=== PATIENT | male | born 1980 | race Caucasian/White ===

== ENCOUNTER 2017-08-25 19:07 | Emergency (ER) | payer SELFPAY ==
[~2017-08-25 19:07] MED LIST: CLIN300C5 PO; PROT40TA PO; VALA500T PO
[2017-08-25] MEDS ORDERED: IOHEXOL 350 MG/ML 10 ML VIAL (for RAD DIAG) IVCONTRAST ONE (19:08)
[2017-08-25 19:09] VITALS: BP 178/92; PULSE 87; RESP 16; TEMP 97.8; O2SAT 99
[2017-08-25 20:44] LABS: AUTOMATED NEUTROPHIL # 8.3 TH/MM3 (1.8-7.7); BASOPHIL # 0.2 TH/MM3 (0-0.2); BASOPHIL % 1.1 % (0.0-2.0); EOSINOPHIL # 0.5 TH/MM3 (0-0.4); EOSINOPHIL % 3.9 % (0.0-4.0); HEMATOCRIT 35.4 % (39.0-51.0); HEMO FLAGS DIFF FINAL; LYMPH % 24.1 % (9.0-44.0); LYMPHOCYTE # 3.2 TH/MM3 (1.0-4.8); MEAN CELL VOLUME 86.3 FL (80.0-100.0); MEAN CORPUSCULAR HEMOGLOBIN 28.6 PG (27.0-34.0); MEAN CORPUSCULAR HGB CONC 33.2 % (32.0-36.0); MONO % 7.4 % (0.0-8.0); NEUT % 63.5 % (16.0-70.0); PLATELET COUNT 472 TH/MM3 (150-450); RED CELL DISTRIBUTION WIDTH 15.5 % (11.6-17.2); WHITE BLOOD COUNT 13.1 TH/MM3 (4.0-11.0)
[2017-08-25] MEDS ORDERED: LIDOCAINE HCL 1% 50 ML VIAL INFIL ONE (20:45)
--- NOTE | 2017-08-25 20:45 | PD ---
HPI Chief Complaint: Skin Problem Time Seen by Provider: 20:34 Travel History International Travel<30 days: No Contact w/Intl Traveler<30days: No Traveled to known affect area: No History of Present Illness HPI This is a 37-year-old male presents for evaluation of abdominal wall pain, redness, soft tissue swelling. Symptoms started 3 weeks ago as 2 small pimple looking lesions. Since then the lesions have grown larger and this is what prompted evaluation today. He reports that his primary care physician called him a prescription for clindamycin over the phone yesterday which she started using yesterday. Denies fevers, chills, nausea, vomiting. Denies any intravenous drug use but he does admit to injecting intramuscular testosterone into his buttocks on a regular basis. He has no other complaints at this time. PFS Past Medical History Blood Disorders: No Cardiovascular Problems: No Diabetes: No Endocrine: No Genitourinary: No Hepatitis: No Hiatal Hernia: No Immune Disorder: No Musculoskeletal: Yes (CHRONIC LOW BACK PAIN) Neurologic: No Reproductive: No Respiratory: No Thyroid Disease: No Past Surgical History Abdominal Surgery: No Cardiac Surgery: No Ear Surgery: No Endocrine Surgery: No Eye Surgery: No Genitourinary Surgery: No Gynecologic Surgery: No Oral Surgery: No Pacemaker: No Thoracic Surgery: No Other Surgery: Yes (LEFT INDEX FINGER SURGERY) Social History Alcohol Use: No Tobacco Use: Yes (1 PPD) 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 Examination of the abdominal wall reveals 2 very large indurated fluctuant lesions. HEAD: Atraumatic. Normocephalic. EYES: Pupils equal and round. No scleral icterus. No injection or drainage. ENT: No nasal bleeding or discharge. Mucous membranes pink and moist. NECK: Trachea midline. No JVD. CARDIOVASCULAR: Regular rate and rhythm. No murmur appreciated. RESPIRATORY: No accessory muscle use. Clear to auscultation. Breath sounds equal bilaterally. GASTROINTESTINAL: Skin as noted above. Abdomen soft, non-tender, nondistended. Hepatic and splenic margins not palpable. MUSCULOSKELETAL: No obvious deformities. No clubbing. No cyanosis. No edema. NEUROLOGICAL: Awake and alert. No obvious cranial nerve deficits. Motor grossly within normal limits. Normal speech. PSYCHIATRIC: Appropriate mood and affect; insight and judgment normal. Data Data Last Documented VS Vital Signs Date Time Temp Pulse Resp B/P (MAP) Pulse Ox O2 Delivery O2 Flow Rate FiO2 08/25/17 19:09 97.8 87 16 178/92 (120) 99 Room Air Orders Orders Complete Blood Count With Diff (08/25/17 19:32) Basic Metabolic Panel (Bmp) (08/25/17 19:32) Lidocaine 1% Inj (50 Ml) (Xylocaine 1% I (08/25/17 20:45) Ct Abd/Pel W Iv Contrast(Rout) (08/25/17 20:37) Wound Culture And Gram Stain (08/25/17 20:38) Iohexol 350 Inj (Omnipaque 350 Inj) (08/25/17 19:08) Labs Laboratory Tests Test 08/25/17 20:10 White Blood Count 13.1 TH/MM3 Red Blood Count 4.10 MIL/MM3 Hemoglobin 11.7 GM/DL Hematocrit 35.4 % Mean Corpuscular Volume 86.3 FL Mean Corpuscular Hemoglobin 28.6 PG Mean Corpuscular Hemoglobin Concent 33.2 % Red Cell Distribution Width 15.5 % Platelet Count 472 TH/MM3 Mean Platelet Volume 7.4 FL Neutrophils (%) (Auto) 63.5 % Lymphocytes (%) (Auto) 24.1 % Monocytes (%) (Auto) 7.4 % Eosinophils (%) (Auto) 3.9 % Basophils (%) (Auto) 1.1 % Neutrophils # (Auto) 8.3 TH/MM3 Lymphocytes # (Auto) 3.2 TH/MM3 Monocytes # (Auto) 1.0 TH/MM3 Eosinophils # (Auto) 0.5 TH/MM3 Basophils # (Auto) 0.2 TH/MM3 CBC Comment DIFF FINAL Differential Comment Blood Urea Nitrogen 22 MG/DL Creatinine 1.33 MG/DL Random Glucose 85 MG/DL Calcium Level 8.8 MG/DL Sodium Level 137 MEQ/L Potassium Level 4.6 MEQ/L Chloride Level 104 MEQ/L Carbon Dioxide Level 27.3 MEQ/L Anion Gap 6 MEQ/L Estimat Glomerular Filtration Rate 61 ML/MIN MDM Medical Decision Making Medical Screen Exam Complete: Yes Emergency Medical Condition: Yes Medical Record Reviewed: Yes Interpretation(s) Lab work notable for a WBC count of 13.1. Differential Diagnosis Abscess, sarcoma, infected cyst, lipoma, cellulitis Narrative Course Lab work was ordered by the triage provider and has been reviewed. He has an elevated the WBC count of 13.1. Initially the patient was denying substance injections into his abdomen however after my examination he admitted to the nurse that he has been injecting hGH into his abdomen subcutaneously and this is certainly the etiology of his abscesses. CT abdomen and pelvis reveals CONCLUSION: 1. Focal area of skin thickening and abnormal masslike soft tissue in the subcutaneous fat over the right anterior abdominal wall musculature. The differential diagnosis includes infection, hematoma and possible abscess. Tumor is less likely. 2. Cholelithiasis. Examination and history are consistent with abscess. After verbal consent was obtained, the abscesses were drained and packed. The patient will continue the clindamycin that was prescribed yesterday pending culture results. He is stable for discharge. Procedures Procedure Narrative INCISION AND DRAINAGE OF ABSCESS: The area was prepped and was sterilely draped. A subcutaneous wheal of 1% Xylocaine with epinephrine with a total number 10 mL was used to anesthetize the area. The area was properly anesthetized. A number 11 scalpel was used to make a 2-cm incision across the area of the abscess. Cultures were obtained. The abscess was drained an irrigated with normal saline. Quarter inch iodoform packing was placed in the wound. Sterile dressing applied. Patient advised to have packing removed in two days. INCISION AND DRAINAGE OF ABSCESS: The area was prepped and was sterilely draped. A subcutaneous wheal of 1% Xylocaine with epinephrine with a total number 10 mL was used to anesthetize the area. The area was properly anesthetized. A number 11 scalpel was used to make a 2-cm incision across the area of the abscess. Cultures were obtained. The abscess was drained an irrigated with normal saline. Quarter inch iodoform packing was placed in the wound. Sterile dressing applied. Patient advised to have packing removed in two days. Diagnosis Primary Impression: Abscess of abdominal wall Additional Instructions: Continue taking antibiotics as prescribed. Follow-up with primary care physician or here in 2-3 days for packing removal. Return for any emergent medical conditions. Med/Other Pt SpecificInfo: Wound Care Disposition: 01 DISCHARGE HOME Condition: Stable Joaquin Villatoro Aug 25, 2017 20:45
[2017-08-25 20:47] LABS: BICARBONATE 27.3 MEQ/L (21.0-32.0); POTASSIUM 4.6 MEQ/L (3.5-5.1)
--- NOTE | 2017-08-25 23:57 | RADRPT ---
EXAM DATE/TIME: 08/25/2017 23:20 [facility] COMPARISON: No previous studies available for comparison. INDICATIONS : Patient complains of painful abdomen skin lesion . IV CONTRAST: 70 cc Omnipaque 350 (iohexol) IV ORAL CONTRAST: No oral contrast ingested. RADIATION DOSE: 11.86 CTDIvol (mGy) MEDICAL HISTORY : None SURGICAL HISTORY : None. ENCOUNTER: Initial ACUITY: 2 days PAIN SCALE: 1/10 LOCATION: abdomen TECHNIQUE: Volumetric scanning of the abdomen and pelvis was performed. Using automated exposure control and ad justment of the mA and/or kV according to patient size, radiation dose was kept as low as reasonably achievable to obtain optimal diagnostic quality images. DICOM format image data is available electro nically for review and comparison. FINDINGS: LOWER LUNGS: The visualized lower lungs are clear. LIVER: Homogeneous density without lesion. There is no dilation of the biliary tree. Multiple gallstones ar e present. SPLEEN: Normal size without lesion. PANCREAS: Within normal limits. KIDNEYS: Normal in size and shape. There is no mass, stone or hydronephrosis. ADRENAL GLANDS: Within normal limits. VASCULAR: There is no aortic aneurysm. BOWEL/MESENTERY: The stomach, small bowel, and colon demonstrate no acute abnormality. There is no free intraperitone al air or fluid. ABDOMINAL WALL: There is no evidence of a hernia. There is a focal mildly heterogeneous skin thickening and soft tiss ue density along the right anterior abdomen centered in the subcutaneous fat. This measures up to yasmani roximately 5 x 1.4 cm in greatest diameter and contains a subtle lower attenuation central portion me asuring up to 1.3 x 1 cm. RETROPERITONEUM: There is no lymphadenopathy. BLADDER: No wall thickening or mass. REPRODUCTIVE: Within normal limits. INGUINAL: There is no lymphadenopathy or hernia. MUSCULOSKELETAL: Within normal limits for patient age. CONCLUSION: 1. Focal area of skin thickening and abnormal masslike soft tissue in the subcutaneous fat over the r ight anterior abdominal wall musculature. The differential diagnosis includes infection, hematoma and possible abscess. Tumor is less likely. 2. Cholelithiasis. Sebastien Quintero MD on August 25, 2017 at 23:52 Board Certified Radiologist. This report was verified electronically.
[2017-08-26] MEDS ORDERED: CLIN300C5 PO (16:58)
== END 2017-08-26 00:33 | disposition home or self-care (01) ==
LOC: NEPD 19:07
DX: L02.211 Cutaneous abscess of abdominal wall (principal); F17.200 Nicotine dependence, unspecified, uncomplicated
CPT/HCPCS: 10061; 74177; 80048; 85025; 87070; 99285; Q9967

== ENCOUNTER 2018-02-17 09:43 | Inpatient (IN) | payer OTHER ==
[~2018-02-17] VITALS: Ht 180.3 cm; Wt 103.7 kg
[2018-02-17 10:04] VITALS: BP 151/66; PULSE 88; RESP 14; TEMP 98.3; O2SAT 98
[2018-02-17] MEDS ORDERED: PIPERACIL-TAZO 4.5 GM PREMIX 100 ML IV STA (10:55)
[2018-02-17 11:11] LABS: AUTOMATED NEUTROPHIL # 8.9 TH/MM3 (1.8-7.7); BASOPHIL # 0.1 TH/MM3 (0-0.2); BASOPHIL % 0.7 % (0.0-2.0); EOSINOPHIL # 0.4 TH/MM3 (0-0.4); EOSINOPHIL % 3.5 % (0.0-4.0); HEMATOCRIT 40.6 % (39.0-51.0); HEMOGLOBIN 13.4 GM/DL (13.0-17.0); LYMPHOCYTE # 2.1 TH/MM3 (1.0-4.8); MEAN CELL VOLUME 89.7 FL (80.0-100.0); MEAN CORPUSCULAR HEMOGLOBIN 29.7 PG (27.0-34.0); MEAN CORPUSCULAR HGB CONC 33.1 % (32.0-36.0); MEAN PLATELET VOLUME 7.3 FL (7.0-11.0); MONO % 7.4 % (0.0-8.0); MONOCYTE # 0.9 TH/MM3 (0-0.9); NEUT % 71.4 % (16.0-70.0); PLATELET COUNT 507 TH/MM3 (150-450); RED BLOOD COUNT 4.53 MIL/MM3 (4.50-5.90); RED CELL DISTRIBUTION WIDTH 15.9 % (11.6-17.2); WHITE BLOOD COUNT 12.5 TH/MM3 (4.0-11.0)
[2018-02-17] MEDS: VANCOMYCIN INJ 1,500 MG in SODIUM CHLORID 0.9% 500 ML INJ 500 ML IV STA ×2 (11:15→11:50)
[2018-02-17 11:30] LABS: BICARBONATE 26.3 MEQ/L (21.0-32.0); CALCIUM 9.4 MG/DL (8.5-10.1); CREATININE 1.06 MG/DL (0.60-1.30)
[2018-02-17] MEDS ORDERED: LIDOCAINE HCL 1% PF 30 ML VIAL INFIL ONE (11:30)
[2018-02-17 11:51] VITALS: BP 133/76; PULSE 81; RESP 16; TEMP 98.1; O2SAT 99
--- NOTE | 2018-02-17 11:56 | PD ---
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 Patient states that it started several days ago. He reports it started as a pimple. He states it soon became larger and more painful. He reports calling his primary care physician who called him in a prescription for clindamycin. He reports that initially it appeared to be getting better however now there is a large amount of drainage and redness and induration. His primary referred him to the [facility] urgent care center who evaluated him and sent him here for further workup. The patient denies any fevers. He denies any chills. PFSH Past Medical History Blood Disorders: No Cardiovascular Problems: No Diabetes: No Diminished Hearing: No Endocrine: No Genitourinary: No Hepatitis: No Hiatal Hernia: No Immune Disorder: No Musculoskeletal: Yes (CHRONIC LOW BACK PAIN) Neurologic: No Reproductive: No Respiratory: No Integumentary: Yes (mrsa) Thyroid Disease: No Tetanus Vaccination: > 5 Years Influenza Vaccination: No Past Surgical History Abdominal Surgery: No Cardiac Surgery: No Ear Surgery: No Endocrine Surgery: No Eye Surgery: No Genitourinary Surgery: No Gynecologic Surgery: No Oral Surgery: No Pacemaker: No Thoracic Surgery: No Other Surgery: Yes (LEFT INDEX FINGER SURGERY) Social History Alcohol Use: No Tobacco Use: No (quit 5 years ago ) 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) Allergies-Medications (Allergen,Severity, Reaction): Coded Allergies: aspirin (Verified Allergy, Severe, hives, 02/17/18) Reported Meds & Prescriptions Reported Meds & Active Scripts Active Protonix (Pantoprazole Sodium) 40 Mg Tab 40 Mg PO DAILY One bid for reflux Review of Systems Except as stated in HPI: all other systems reviewed are Neg General / Constitutional: No: Fever HENT: No: Headaches, Neck Pain Cardiovascular: No: Chest Pain or Discomfort, Palpitations Respiratory: No: Cough, Shortness of Breath Gastrointestinal: No: Nausea, Vomiting Musculoskeletal: Positive: Edema, Pain Skin: Positive Lesions (Left forearm draining lesion with purulent ), Positive Other (Induration.) Neurologic: No: Weakness, Headache Physical Exam Narrative GENERAL: Well-nourished, well-developed patient. SKIN: Focused skin assessment warm/dry. HEAD: Normocephalic. EYES: No scleral icterus. No injection or drainage. NECK: Supple, trachea midline. No JVD or lymphadenopathy. CARDIOVASCULAR: Regular rate and rhythm without murmurs, gallops, or rubs. RESPIRATORY: Breath sounds equal bilaterally. No accessory muscle use. GASTROINTESTINAL: Abdomen soft, non-tender, nondistended. MUSCULOSKELETAL: On examination of patient's left forearm, there is a 4 x 3 cm abscess with purulent sanguinous drainage. There is also 10 x 11 cm of induration noted surrounding the abscess. There is no obvious lymphangitis at this point. BACK: Nontender without obvious deformity. No CVA tenderness. Data Data Last Documented VS Vital Signs Date Time Temp Pulse Resp B/P (MAP) Pulse Ox O2 Delivery O2 Flow Rate FiO2 02/17/18 11:51 98.1 81 16 133/76 (95) 99 Orders Orders Basic Metabolic Panel (Bmp) (02/17/18 10:52) Complete Blood Count With Diff (02/17/18 10:52) Blood Culture (02/17/18 10:52) Iv Access Insert/Monitor (02/17/18 10:52) Lactic Acid Sepsis Protocol (02/17/18 10:55) Piperacil-Tazo 4.5 Gm Premix (Zosyn 4.5 (02/17/18 10:55) Vancomycin Inj (Vancomycin Inj) (02/17/18 10:55) Wound Culture And Gram Stain (02/17/18 11:12) Lidocaine Pf 1% Inj (Xylocaine-Mpf 1% In (02/17/18 11:30) Admit Order (Ed Use Only) (02/17/18 13:42) Labs Laboratory Tests Test 02/17/18 10:50 02/17/18 11:10 White Blood Count 12.5 TH/MM3 Red Blood Count 4.53 MIL/MM3 Hemoglobin 13.4 GM/DL Hematocrit 40.6 % Mean Corpuscular Volume 89.7 FL Mean Corpuscular Hemoglobin 29.7 PG Mean Corpuscular Hemoglobin Concent 33.1 % Red Cell Distribution Width 15.9 % Platelet Count 507 TH/MM3 Mean Platelet Volume 7.3 FL Neutrophils (%) (Auto) 71.4 % Lymphocytes (%) (Auto) 17.0 % Monocytes (%) (Auto) 7.4 % Eosinophils (%) (Auto) 3.5 % Basophils (%) (Auto) 0.7 % Neutrophils # (Auto) 8.9 TH/MM3 Lymphocytes # (Auto) 2.1 TH/MM3 Monocytes # (Auto) 0.9 TH/MM3 Eosinophils # (Auto) 0.4 TH/MM3 Basophils # (Auto) 0.1 TH/MM3 CBC Comment DIFF FINAL Differential Comment Blood Urea Nitrogen 17 MG/DL Creatinine 1.06 MG/DL Random Glucose 103 MG/DL Calcium Level 9.4 MG/DL Sodium Level 138 MEQ/L Potassium Level 4.6 MEQ/L Chloride Level 104 MEQ/L Carbon Dioxide Level 26.3 MEQ/L Anion Gap 8 MEQ/L Estimat Glomerular Filtration Rate 80 ML/MIN Lactic Acid Level 1.2 mmol/L MDM Medical Decision Making Medical Screen Exam Complete: Yes Emergency Medical Condition: Yes Differential Diagnosis Cellulitis versus abscess versus lymphangitis Narrative Course 37-year-old male who has a history of MRSA infection, presented today with left forearm abscess with drainage. Patient was previously started on oral clindamycin. It initially got better however now is gotten worse. Patient has a large area of induration as well. The abscess has been I&D by Niles Beck PA-C. He has been started on vancomycin and Zosyn. Blood cultures are pending at this time. Case was discussed with the resident service and they are amenable to admission. Diagnosis Primary Impression: Cellulitis of left forearm Additional Impressions: Failed outpatient oral antibiotics History of MRSA infection Vinod Nayak MD February 17, 2018 11:56
--- NOTE | 2018-02-17 12:28 | PD ---
Physical Exam Date Seen by Provider: February 17, 2018 Time Seen by Provider: 12:26 Narrative 37 yo male here for evaluation of abscess. I was asked by my attending to I & D his abscess. Please refer to his note. Data Data Last Documented VS Vital Signs Date Time Temp Pulse Resp B/P (MAP) Pulse Ox O2 Delivery O2 Flow Rate FiO2 02/17/18 11:51 98.1 81 16 133/76 (95) 99 Orders Orders Basic Metabolic Panel (Bmp) (02/17/18 10:52) Complete Blood Count With Diff (02/17/18 10:52) Blood Culture (02/17/18 10:52) Iv Access Insert/Monitor (02/17/18 10:52) Lactic Acid Sepsis Protocol (02/17/18 10:55) Piperacil-Tazo 4.5 Gm Premix (Zosyn 4.5 (02/17/18 10:55) Vancomycin Inj (Vancomycin Inj) (02/17/18 10:55) Wound Culture And Gram Stain (02/17/18 11:12) Lidocaine Pf 1% Inj (Xylocaine-Mpf 1% In (02/17/18 11:30) Labs Laboratory Tests Test 02/17/18 10:50 02/17/18 11:10 White Blood Count 12.5 TH/MM3 Red Blood Count 4.53 MIL/MM3 Hemoglobin 13.4 GM/DL Hematocrit 40.6 % Mean Corpuscular Volume 89.7 FL Mean Corpuscular Hemoglobin 29.7 PG Mean Corpuscular Hemoglobin Concent 33.1 % Red Cell Distribution Width 15.9 % Platelet Count 507 TH/MM3 Mean Platelet Volume 7.3 FL Neutrophils (%) (Auto) 71.4 % Lymphocytes (%) (Auto) 17.0 % Monocytes (%) (Auto) 7.4 % Eosinophils (%) (Auto) 3.5 % Basophils (%) (Auto) 0.7 % Neutrophils # (Auto) 8.9 TH/MM3 Lymphocytes # (Auto) 2.1 TH/MM3 Monocytes # (Auto) 0.9 TH/MM3 Eosinophils # (Auto) 0.4 TH/MM3 Basophils # (Auto) 0.1 TH/MM3 CBC Comment DIFF FINAL Differential Comment Blood Urea Nitrogen 17 MG/DL Creatinine 1.06 MG/DL Random Glucose 103 MG/DL Calcium Level 9.4 MG/DL Sodium Level 138 MEQ/L Potassium Level 4.6 MEQ/L Chloride Level 104 MEQ/L Carbon Dioxide Level 26.3 MEQ/L Anion Gap 8 MEQ/L Estimat Glomerular Filtration Rate 80 ML/MIN Lactic Acid Level 1.2 mmol/L MDM Medical Record Reviewed: Yes Supervised Visit with GABINO: No Procedures Procedure Narrative After the risks and benefits were discussed the following procedure was performed: INCISION AND DRAINAGE OF ABSCESS: The area was prepped and was sterilely draped. A subcutaneous wheal of 1 % Xylocaine with a total number 8 mL was used to anesthetize the area. The area was properly anesthetized. A number 11 scalpel was used to make a 1 -cm incision across the area of the abscess. Cultures were obtained. The abscess was drained an irrigated with normal saline. Quarter inch iodoform packing was placed in the wound. Sterile dressing applied. Patient advised to have packing removed in two days. Niles Beck February 17, 2018 12:28
--- NOTE | 2018-02-17 13:59 | HHI.HP ---
[facility] Service Family Medicine Primary Care Physician José Miguel Mccracken MD Admission Diagnosis left forearm cellulitis failed outpatient antiiotics. Diagnoses: International Travel<30 Days: No Contact w/Intl Traveler<30days: No Known Affected Area: No History of Present Illness 37-year-old male with history of MRSA skin infections presents to the ED for left forearm cellulitis. He is a patient of Dr. Mccracken. Patient states that he noticed a pimple on his arm last Sunday 02/11. He proceeded to pop it. He states that it turned into a boil and began to "swell up as big as a golf ball. " He called Dr. Mccracken and was put on clindamycin 300 mg TID. He started the antibiotics on Wednesday. Despite antibiotic treatment, patient states that he continued to have swelling and purulent drainage from his left forearm. He endorses subjective fevers. He states that he took Tylenol for pain, which provided mild relief. He also endorses 2 episodes of non-bloody vomiting when he started clindamycin. He denies chest pain, shortness of breath, abdominal pain, and diarrhea. He states that he was just recently here in August 2017 for 2 abscesses on his stomach. Patient had an incision and drainage of the abscesses in the ED. Patient also states that he has a history of of MRSA infection in his left index finger in 2010. (Anjelica Davis MD R1) Review of Systems Constitutional: COMPLAINS OF: Fever, DENIES: Weight loss, Change in appetite Ears, nose, mouth, throat: DENIES: Throat pain, Running Nose Respiratory: DENIES: Cough, Shortness of breath Cardiovascular: DENIES: Chest pain Gastrointestinal: COMPLAINS OF: Nausea, Vomiting, DENIES: Abdominal pain, Diarrhea Genitourinary: DENIES: Dysuria Musculoskeletal: DENIES: Muscle aches Integumentary: COMPLAINS OF: Rash Neurologic: DENIES: Headache (Anjelica Davis MD R1) Past Family Social History Past Medical History GERD Hx of MRSA Past Surgical History 4 MRSA- 4 surgery on finger left- index (Anjelica Davis MD R1) Allergies: Coded Allergies: aspirin (Verified Allergy, Severe, hives, 02/17/18) Family History Mom- healthy- alive Dad- MVA Social History 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 SKIN: Left forearm wrapped in gauze and bandage, upon unravel of bandage, patient had post I & D of 4 x 3 cm abscess, it is currently packed, it was noted that patient had 10 x 11 of induration surround the abscess HEAD: Atraumatic. Normocephalic. No temporal or scalp tenderness. EYES: Pupils equal round and reactive. Extraocular motions intact. No scleral icterus. No injection or drainage. ENT: Nose without bleeding, purulent drainage or septal hematoma. Throat without erythema, tonsillar hypertrophy or exudate. Uvula midline. Airway patent. NECK: Trachea midline. No JVD or lymphadenopathy. Supple, nontender, no meningeal signs. CARDIOVASCULAR: Regular rate and rhythm without murmurs, gallops, or rubs. RESPIRATORY: Clear to auscultation. Breath sounds equal bilaterally. No wheezes , rales, or rhonchi. GASTROINTESTINAL: Abdomen soft, non-tender, nondistended. No hepato-splenomegaly , or palpable masses. No guarding. MUSCULOSKELETAL: See skin exam above. NEUROLOGICAL: Awake and alert. Oriented x 3. Laboratory Laboratory Tests Test 02/17/18 10:50 02/17/18 11:10 White Blood Count 12.5 Red Blood Count 4.53 Hemoglobin 13.4 Hematocrit 40.6 Mean Corpuscular Volume 89.7 Mean Corpuscular Hemoglobin 29.7 Mean Corpuscular Hemoglobin Concent 33.1 Red Cell Distribution Width 15.9 Platelet Count 507 Mean Platelet Volume 7.3 Neutrophils (%) (Auto) 71.4 Lymphocytes (%) (Auto) 17.0 Monocytes (%) (Auto) 7.4 Eosinophils (%) (Auto) 3.5 Basophils (%) (Auto) 0.7 Neutrophils # (Auto) 8.9 Lymphocytes # (Auto) 2.1 Monocytes # (Auto) 0.9 Eosinophils # (Auto) 0.4 Basophils # (Auto) 0.1 CBC Comment DIFF FINAL Differential Comment Blood Urea Nitrogen 17 Creatinine 1.06 Random Glucose 103 Calcium Level 9.4 Sodium Level 138 Potassium Level 4.6 Chloride Level 104 Carbon Dioxide Level 26.3 Anion Gap 8 Estimat Glomerular Filtration Rate 80 Lactic Acid Level 1.2 Date/Time Source Procedure Growth Status 02/17/18 10:50 Blood Peripheral Aerobic Blood Culture Pending Received 02/17/18 10:50 Blood Peripheral Anaerobic Blood Culture Pending Received 02/17/18 11:10 Wound Arm Gram Stain Pending Received 02/17/18 11:10 Wound Arm Wound Culture Pending Received (Anjelica Davis MD R1) Result Diagram: 02/17/18 1050 02/17/18 1050 Caprini VTE Risk Assessment Caprini VTE Risk Assessment: No/Low Risk (score <= 1) Caprini Risk Assessment Model Point Value = 1 Point Value = 2 Point Value = 3 Point Value = 5 Age 41-60 Minor surgery BMI > 25 kg/m2 Swollen legs Varicose veins or History of unexplained or recurrent spontaneous Oral contraceptives or hormone replacement Sepsis (< 1 month) Serious lung disease, including pneumonia (< 1 month) Abnormal pulmonary function Acute myocardial infarction Congestive heart failure (< 1 month) History of inflammatory bowel disease Medical patient at bed rest Age 61-74 Arthroscopic surgery Major open surgery (> 45 min) Laparoscopic surgery (> 45 min) Malignancy Confined to bed (> 72 hours) Immobilizing plaster cast Central venous access Age >= 75 History of VTE Family history of VTE Factor V Leiden Prothrombin [id number] Lupus anticoagulant Anticardiolipin antibodies Elevated serum homocysteine Heparin-induced thrombocytopenia Other congenital or acquired thrombophilia Stroke (< 1 month) Elective arthroplasty Hip, pelvis, or leg fracture Acute spinal cord injury (< 1 month) Prophylaxis Regimen Total Risk Factor Score Risk Level Prophylaxis Regimen 0-1 Low Early ambulation 2 Moderate Order ONE of the following: *Sequential Compression Device (SCD) *Heparin 5000 units SQ BID 3-4 Higher Order ONE of the following medications: *Heparin 5000 units SQ TID *Enoxaparin/Lovenox 40 mg SQ daily (WT < 150 kg, CrCl > 30 mL/min) *Enoxaparin/Lovenox 30 mg SQ daily (WT < 150 kg, CrCl > 10-29 mL/min) *Enoxaparin/Lovenox 30 mg SQ BID (WT < 150 kg, CrCl > 30 mL/min) AND/OR *Sequential Compression Device (SCD) 5 or more Highest Order ONE of the following medications: *Heparin 5000 units SQ TID (Preferred with Epidurals) *Enoxaparin/Lovenox 40 mg SQ daily (WT < 150 kg, CrCl > 30 mL/min) *Enoxaparin/Lovenox 30 mg SQ daily (WT < 150 kg, CrCl > 10-29 mL/min) *Enoxaparin/Lovenox 30 mg SQ BID (WT < 150 kg, CrCl > 30 mL/min) AND *Sequential Compression Device (SCD) (Anjelica Davis MD R1) Assessment and Plan Assessment and Plan 37-year-old male with history of MRSA infections presents to the ED with abscess of left forearm. Patient failed outpatient therapy with clindamycin. Code Status Full Code (Anjelica Davis MD R1) Attending Attestation THIS CASE WAS DISCUSSED WITH THE RESIDENT PHYSICIANS. I HAVE REVIEWED THE RECORD AND AGREE WITH THE ABOVE NOTE AND PLAN OF CARE WAS DISCUSSED. I HAVE AUTHORIZED THE ORDER FOR ADMISSION TO AN IN-PATIENT STATUS. (Woody Buck MD) Problem List: (1) Cellulitis of left forearm ICD Codes: L03.114 - Cellulitis of left upper limb Plan: Patient with a one-week history of left forearm abscess. Failed outpatient therapy with clindamycin. Hx of MRSA. I&D performed in the ED 02/17 Patient received 1 dose of Zosyn and Vanc in the ED. Patient is currently afebrile. Elevated white count of 12.5. Gram stain and wound culture pending Blood cultures 2 pending Wound care consulted. Antibiotics: Continue vancomycin 1500 mg IV every 12, consult pharmacy for appropriate dosing (started 02/17-) Continue Zosyn 3.375 IV every 6 hours (started 02/17-) Pain control: Tylenol for fever and pain (2) Hx MRSA infection ICD Codes: Z86.14 - Personal history of Methicillin resistant Staphylococcus aureus infection Plan: History of MRSA infection. Contact precautions. (3) GERD (gastroesophageal reflux disease) ICD Codes: K21.9 - Gastroesophageal reflux disease Status: Acute Plan: Protonix 40 mg daily (4) Nutrition, metabolism, and development symptoms ICD Codes: R63.8 - Other symptoms and signs concerning food and fluid intake Plan: Diet: Regular basic Fluids: P.o. hydration Vitals every 4, monitor I's and O's DVT ppx: SCDs, Heparin 5000 units q12h (Anjelica Davis MD R1) Anjelica Davis MD R1 February 17, 2018 13:59 Woody Buck MD Feb 18, 2018 14:46
[2018-02-17] MEDS ORDERED: ONDANSETRON HCL 4 MG/2 ML VIAL IVP PRN (14:15)
[2018-02-17] MEDS ORDERED: Vancomycin Consult Pharmacy 1 EA OTHER SCH ×2 (14:15→15:00)
[2018-02-17] MEDS ORDERED: NALOXONE HCL 0.4 MG/ML AMP IV PUSH PRN (14:15)
[2018-02-17 14:30] VITALS: BP 124/81; PULSE 76; RESP 16; TEMP 98; O2SAT 98
[2018-02-17] MEDS ORDERED: KETOROLAC TROMETHAMINE 10 MG TAB PO PRN (14:30)
[2018-02-17] MEDS ORDERED: IBUPROFEN 400 MG TAB PO PRN (14:30)
[2018-02-17] MEDS ORDERED: diphenhydrAMINE HCL 25 MG CAP PO PRN ×2 (14:30→18:30)
[2018-02-17] MEDS: HEPARIN SODIUM - SQ 10,000 UNITS/ML VIAL SQ SCH (14:38)
[2018-02-17] MEDS: SODIUM CHLORIDE 0.9% FLUSH 10 ML FLUSH IV FLUSH SCH ×2 (14:59→20:26)
[2018-02-17] MEDS ORDERED: ACETAMINOPHEN 325 MG TAB PO PRN (15:00)
[2018-02-17 16:23] VITALS: BP 130/77; TEMP 97.9
[2018-02-17 16:35] VITALS: BP 137/75; PULSE 84; RESP 18; TEMP 98.1; O2SAT 98
[2018-02-17] MEDS: VANCOMYCIN INJ 1,750 MG in SODIUM CHLORID 0.9% 500 ML INJ 500 ML IV ONE ×2 (17:08→18:24)
[2018-02-17] MEDS: PIPERACIL-TAZO 3.375 GM PREMIX 50 ML IV SCH (17:49)
[2018-02-17] MEDS ORDERED: ACETAMINOPHEN/HYDROcodone 325 MG/5 MG TAB PO PRN (18:00)
[2018-02-17] MEDS ORDERED: ACETAMINOPHEN/HYDROcodone 325 MG/7.5 MG TAB PO PRN (18:00)
[2018-02-17] MEDS ORDERED: ACETAMINOPHEN 1000 MG/100 ML 100 ML IV PRN (18:15)
[2018-02-17 20:10] VITALS: BP 132/62; PULSE 72; RESP 16; TEMP 98.2; O2SAT 98
[2018-02-18] VITALS (7 sets, daily range): BP systolic 126–199; BP diastolic 60–88; PULSE 66–86; RESP 16–20; TEMP 97.4–98.8; O2SAT 96–97
[2018-02-18] MEDS ORDERED: VANCOMYCIN INJ 1,500 MG in SODIUM CHLORID 0.9% 500 ML INJ 500 ML IV SCH ×2
[2018-02-18] MEDS: PIPERACIL-TAZO 3.375 GM PREMIX 50 ML IV SCH ×4 (00:13→20:24)
[2018-02-18] MEDS: HEPARIN SODIUM - SQ 10,000 UNITS/ML VIAL SQ SCH ×2 (04:10→14:56)
[2018-02-18] MEDS: VANCOMYCIN INJ 1,250 MG in SODIUM CHLOR 0.9% 250 ML INJ 250 ML IV SCH ×2 (04:10→16:39)
[2018-02-18 05:14] LABS: AUTOMATED NEUTROPHIL # 6.4 TH/MM3 (1.8-7.7); BASOPHIL # 0.1 TH/MM3 (0-0.2); BASOPHIL % 0.8 % (0.0-2.0); EOSINOPHIL # 0.9 TH/MM3 (0-0.4); EOSINOPHIL % 7.9 % (0.0-4.0); HEMATOCRIT 41.1 % (39.0-51.0); HEMOGLOBIN 13.8 GM/DL (13.0-17.0); LYMPH % 23.2 % (9.0-44.0); LYMPHOCYTE # 2.5 TH/MM3 (1.0-4.8); MEAN CELL VOLUME 88.9 FL (80.0-100.0); MEAN CORPUSCULAR HEMOGLOBIN 29.9 PG (27.0-34.0); MEAN CORPUSCULAR HGB CONC 33.6 % (32.0-36.0); MEAN PLATELET VOLUME 6.9 FL (7.0-11.0); MONO % 9.2 % (0.0-8.0); NEUT % 58.9 % (16.0-70.0); PLATELET COUNT 544 TH/MM3 (150-450); RED BLOOD COUNT 4.62 MIL/MM3 (4.50-5.90); WHITE BLOOD COUNT 10.9 TH/MM3 (4.0-11.0)
[2018-02-18 06:10] LABS: BICARBONATE 25.6 MEQ/L (21.0-32.0); CALCIUM 8.4 MG/DL (8.5-10.1); CREATININE 1.03 MG/DL (0.60-1.30)
[2018-02-18] MEDS: SODIUM CHLORIDE 0.9% FLUSH 10 ML FLUSH IV FLUSH SCH ×2 (09:00→20:30)
[2018-02-18] MEDS: PANTOPRAZOLE SOD 40 MG DELAYED RELEASE TAB PO SCH (09:31)
--- NOTE | 2018-02-18 10:52 | PD.PN.STU ---
Subjective Remarks Patient reports no problems overnight. No fever or chills. He has pain at the abscess site post-I &D and requests non-narcotic medications for pain control. He endorses decreased swelling and redness of his LUE since starting antibiotics. He continues to have purulent drainage. He had red man syndrome from vancomycin which resolved upon decreasing the infusion rate by half and administering Benadryl. No current complaints of pruritus or discomfort. Denies any nausea, vomiting, abdominal, constipation or diarrhea. Denies any shortness of breath, chest pain or musculoskeletal pain. Objective Vitals Vital Signs Date Time Temp Pulse Resp B/P (MAP) Pulse Ox O2 Delivery O2 Flow Rate FiO2 02/18/18 08:31 98.1 76 20 142/81 (101) 97 02/18/18 04:11 97.8 69 17 147/71 (96) 97 02/18/18 00:15 98.2 66 16 132/60 (84) 97 02/17/18 23:00 18 02/17/18 20:10 98.2 72 16 132/62 (85) 98 02/17/18 16:35 98.1 84 18 137/75 (95) 98 02/17/18 16:23 97.9 80 16 130/77 (94) 99 02/17/18 14:30 98.0 76 16 124/81 (95) 98 Room Air 02/17/18 11:51 98.1 81 16 133/76 (95) 99 02/17/18 10:35 78 16 I/O 02/17/18 02/17/18 02/17/18 02/18/18 02/18/18 02/18/18 07:00 15:00 23:00 07:00 15:00 23:00 Intake Total 915 ml 500 ml 480 ml Balance 915 ml 500 ml 480 ml Intake Oral 300 ml 480 ml IV Total 615 ml 500 ml # Voids 1 2 1 # Bowel Movements 0 Result Diagram: 02/18/18 0500 02/18/18 0500 Objective Remarks GENERAL: This is a well-nourished, well-developed patient, in no apparent distress. Found sitting up in bed comfortably. SKIN: Left forearm wrapped in gauze and bandage, upon unravel of bandage, patient had post I & D of 4 x 3 cm abscess, currently packed, surrounding area of erythema is improved from prior exam. Purulent drainage noted. HEAD: Atraumatic. Normocephalic. No temporal or scalp tenderness. EYES: Pupils equal round and reactive. Extraocular motions intact. No scleral icterus. No injection or drainage. ENT: Nose without bleeding, purulent drainage or septal hematoma. Throat without erythema, tonsillar hypertrophy or exudate. Uvula midline. Airway patent. NECK: Trachea midline. No JVD or lymphadenopathy. Supple, nontender, no meningeal signs. CARDIOVASCULAR: Regular rate and rhythm without murmurs, gallops, or rubs. RESPIRATORY: Clear to auscultation. Breath sounds equal bilaterally. No wheezes , rales, or rhonchi. GASTROINTESTINAL: Abdomen soft, non-tender, nondistended. No hepato-splenomegaly , or palpable masses. No guarding. Two healing scars from prior I&D sites present in lower abdominal region. NEUROLOGICAL: Awake and alert. Oriented x 3. Normal speech. A/P Assessment and Plan 37-year-old male with history of MRSA infections who presented to ED with LUE abscess with surrounding cellulitis x 1 week. Patient failed outpatient therapy with clindamycin. Will admit to inpatient unit. Code Status Full Code Problem List: (1) Cellulitis of left forearm ICD Codes: L03.114 - Cellulitis of left upper limb Plan: Patient with a one-week history of left forearm abscess with surrounding cellulitis. Failed outpatient therapy with clindamycin. Hx of MRSA infection in 2010. I&D performed in the ED 02/17. Patient received 1 dose of Zosyn and Vanc in the ED. Patient has been afebrile throughout entire hospital stay. WBC improving at 10.9. 12.5 on admission Wound culture showed moderate WBCs and gram positive cocci in pairs and clusters. Likely MRSA. Blood cultures showed no growth x1 day Wound care consulted. Antibiotics: Vancomycin 1250mg IV every 12 hours per pharmacy dosing recommendation. Continue Zosyn 3.375 IV every 6 hours due to occupational exposure to salt water. Pain control: Toradol 30mg IM every 6 hours for pain. Will avoid narcotics due to history of drug abuse. (2) Hx MRSA infection ICD Codes: Z86.14 - Personal history of Methicillin resistant Staphylococcus aureus infection Plan: History of MRSA infection. Contact precautions. Will plan to discharge with MRSA eradication plan due to history of recurrent MRSA infections. Consider topical options such as Bactroban and Hibiclens. (3) GERD (gastroesophageal reflux disease) ICD Codes: K21.9 - Gastroesophageal reflux disease Status: Acute Plan: Protonix 40 mg daily (4) Nutrition, metabolism, and development symptoms ICD Codes: R63.8 - Other symptoms and signs concerning food and fluid intake Plan: Diet: Regular basic Fluids: P.o. hydration Vitals every 4, monitor I's and O's DVT ppx: SCDs, Heparin 5000 units q12h Note completed by Agnes Yeboah, MS4 Agnes Yeboah M3 Feb 18, 2018 10:52
--- NOTE | 2018-02-18 14:46 | HHI.HP ---
[facility] Service Family Medicine Primary Care Physician José Miguel Mccracken MD Admission Diagnosis left forearm cellulitis failed outpatient antiiotics. Diagnoses: (1) Cellulitis of left forearm (2) Hx MRSA infection (3) GERD (gastroesophageal reflux disease) (4) Nutrition, metabolism, and development symptoms International Travel<30 Days: No Contact w/Intl Traveler<30days: No Known Affected Area: No History of Present Illness 37-year-old male presenting to the emergency department with left forearm abscess and cellulitis failing outpatient treatment with clindamycin. Approximately 1 week ago he noticed a pustule on his left forearm is small amount of purulent material. It turned into a large boil and began to swell for which point he called his PCP on clindamycin 300 mg p.o. 3 times daily. She has been on these medications for 5 days with progressive swelling, erythema and pain of the left forearm. 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 He came to sample and he presented to the emergency further treatment. In the emergency department he underwent an incision and drainage of the abscess culture. Placed on vancomycin and Zosyn pending wound consult-place. On rounds this morning, patient was examined in the resident states that the arm is doing moderately better. The extent of swelling has gone down, however the area continues to drain a significant amount of material and continues to have a lot of pain from the area. He denies any chills, he denies any numbness or tingling distal to the lesion on the arm or hand. He denies any nausea or vomiting. He denies any chest pain or palpitations. He has tolerated breakfast without issue and has been taking Tylenol for pain. 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 Denies drinking or illicit drug use Physical Exam Vital Signs Vital Signs Date Time Temp Pulse Resp B/P (MAP) Pulse Ox O2 Delivery O2 Flow Rate FiO2 02/18/18 11:58 126/80 (95) 02/18/18 11:26 98.8 86 18 199/88 (125) 96 02/18/18 08:31 98.1 76 20 142/81 (101) 97 02/18/18 04:11 97.8 69 17 147/71 (96) 97 02/18/18 00:15 98.2 66 16 132/60 (84) 97 02/17/18 23:00 18 02/17/18 20:10 98.2 72 16 132/62 (85) 98 02/17/18 16:35 98.1 84 18 137/75 (95) 98 02/17/18 16:23 97.9 80 16 130/77 (94) 99 Physical Exam GENERAL: Athletic appearing, muscular, well-developed male in no obvious distress SKIN: Left forearm wrapped in gauze, once the gauze was removed evaluation of the wound was possible. Continues to have an area approximately 4 cm x 3 cm of significant erythema packing material that is draining copious purulent material. The packing material is soaked with purulent material. Minimal amount of erythema extending from the central lesion. There is some subcutaneous swelling 2-3 cm proximal and distal to the lesion. No obvious areas of fluctuance or induration. CARDIOVASCULAR: Regular rate and rhythm without murmurs, gallops, or rubs. RESPIRATORY: Clear to auscultation. Breath sounds equal bilaterally. No wheezes , rales, or rhonchi. MUSCULOSKELETAL: See skin exam above. NEUROLOGICAL: Awake and alert. Oriented x 3. Laboratory Laboratory Tests Test 02/18/18 05:00 02/18/18 11:40 White Blood Count 10.9 Red Blood Count 4.62 Hemoglobin 13.8 Hematocrit 41.1 Mean Corpuscular Volume 88.9 Mean Corpuscular Hemoglobin 29.9 Mean Corpuscular Hemoglobin Concent 33.6 Red Cell Distribution Width 16.0 Platelet Count 544 Mean Platelet Volume 6.9 Neutrophils (%) (Auto) 58.9 Lymphocytes (%) (Auto) 23.2 Monocytes (%) (Auto) 9.2 Eosinophils (%) (Auto) 7.9 Basophils (%) (Auto) 0.8 Neutrophils # (Auto) 6.4 Lymphocytes # (Auto) 2.5 Monocytes # (Auto) 1.0 Eosinophils # (Auto) 0.9 Basophils # (Auto) 0.1 CBC Comment DIFF FINAL Differential Comment Blood Urea Nitrogen 16 Creatinine 1.03 Random Glucose 114 Calcium Level 8.4 Sodium Level 141 Potassium Level 4.1 Chloride Level 106 Carbon Dioxide Level 25.6 Anion Gap 9 Estimat Glomerular Filtration Rate 82 Urine Opiates Screen NEG Urine Barbiturates Screen NEG Urine Amphetamines Screen NEG Urine Benzodiazepines Screen NEG Urine Cocaine Screen NEG Urine Cannabinoids Screen NEG Date/Time Source Procedure Growth Status 02/17/18 10:50 Blood Peripheral Aerobic Blood Culture - Preliminary NO GROWTH IN 1 DAY Resulted 02/17/18 10:50 Blood Peripheral Anaerobic Blood Culture - Preliminary NO GROWTH IN 1 DAY Resulted 02/17/18 11:10 Wound Arm Gram Stain - Final Resulted 02/17/18 11:10 Wound Culture - Preliminary S. Aureus Mrsa Resulted Result Diagram: 02/18/18 0500 02/18/18 0500 [place]rinwan VTE Risk Assessment Christelle VTE Risk Assessment: No/Low Risk (score <= 1) Caprini Risk Assessment Model Point Value = 1 Point Value = 2 Point Value = 3 Point Value = 5 Age 41-60 Minor surgery BMI > 25 kg/m2 Swollen legs Varicose veins or History of unexplained or recurrent spontaneous Oral contraceptives or hormone replacement Sepsis (< 1 month) Serious lung disease, including pneumonia (< 1 month) Abnormal pulmonary function Acute myocardial infarction Congestive heart failure (< 1 month) History of inflammatory bowel disease Medical patient at bed rest Age 61-74 Arthroscopic surgery Major open surgery (> 45 min) Laparoscopic surgery (> 45 min) Malignancy Confined to bed (> 72 hours) Immobilizing plaster cast Central venous access Age >= 75 History of VTE Family history of VTE Factor V Leiden Prothrombin [id number] Lupus anticoagulant Anticardiolipin antibodies Elevated serum homocysteine Heparin-induced thrombocytopenia Other congenital or acquired thrombophilia Stroke (< 1 month) Elective arthroplasty Hip, pelvis, or leg fracture Acute spinal cord injury (< 1 month) Prophylaxis Regimen Total Risk Factor Score Risk Level Prophylaxis Regimen 0-1 Low Early ambulation 2 Moderate Order ONE of the following: *Sequential Compression Device (SCD) *Heparin 5000 units SQ BID 3-4 Higher Order ONE of the following medications: *Heparin 5000 units SQ TID *Enoxaparin/Lovenox 40 mg SQ daily (WT < 150 kg, CrCl > 30 mL/min) *Enoxaparin/Lovenox 30 mg SQ daily (WT < 150 kg, CrCl > 10-29 mL/min) *Enoxaparin/Lovenox 30 mg SQ BID (WT < 150 kg, CrCl > 30 mL/min) AND/OR *Sequential Compression Device (SCD) 5 or more Highest Order ONE of the following medications: *Heparin 5000 units SQ TID (Preferred with Epidurals) *Enoxaparin/Lovenox 40 mg SQ daily (WT < 150 kg, CrCl > 30 mL/min) *Enoxaparin/Lovenox 30 mg SQ daily (WT < 150 kg, CrCl > 10-29 mL/min) *Enoxaparin/Lovenox 30 mg SQ BID (WT < 150 kg, CrCl > 30 mL/min) AND *Sequential Compression Device (SCD) Assessment and Plan Assessment and Plan 37-year-old male with history of MRSA infections presents to the ED with abscess of left forearm. Patient failed outpatient therapy with clindamycin. Problem List: (1) Cellulitis of left forearm ICD Codes: L03.114 - Cellulitis of left upper limb Plan: Status post incision and drainage in the emergency department packing material placed -Failed outpatient management with oral clindamycin 300 mg p.o. 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 -Initial wound culture growing MRSA, sensitivities pending Contact precautions. (3) GERD (gastroesophageal reflux disease) ICD Codes: K21.9 - Gastroesophageal reflux disease Status: Acute Plan: Protonix 40 mg daily (4) Nutrition, metabolism, and development symptoms ICD Codes: R63.8 - Other symptoms and signs concerning food and fluid intake Plan: Diet: Regular basic Fluids: P.o. hydration Vitals every 4, monitor I's and O's DVT ppx: SCDs, Heparin 5000 units q12h Physician Certification 2 Midnight Certification Type: Admission for Inpatient Services Order for Inpatient Services The services are ordered in accordance with Medicare regulations or non- Medicare payer requirements, as applicable. In the case of services not specified as inpatient-only, they are appropriately provided as inpatient services in accordance with the 2-midnight benchmark. Estimated LOS (days): 2 2 days is the estimated time the patient will need to remain in the hospital, assuming treatment plan goals are met and no additional complications. Post-Hospital Plan: Home Woody Buck MD Feb 18, 2018 14:46
[2018-02-18] MEDS: SODIUM CHLORIDE 0.9% FLUSH 10 ML FLUSH IV FLUSH PRN ×2 (14:55→16:39)
[2018-02-18] MEDS: KETOROLAC TROMETHAMINE 30 MG/ML (IVP) VIAL IV PUSH SCH ×2 (14:56→20:20)
--- NOTE | 2018-02-18 16:24 | PD.WCN.NOT ---
Wound Consult Description: Consult for WOUND MANAGEMENT of left forearm per Dr Jauregui Communicated with: Patient Rosana RN Anjelica Davis MD R1 Recommendation: Left Lateral Forearm DAILY until seen by hand/general Surgery: Remove packing of Maxorb after soaking outer layer of Maxorb dressing in NS for ~2min. Gently cleanse wound with NS and gauze. Gently pack wound with a cut strip of "Maxorb Extra AG" leaving a tail outside for easy removal. Cover with 4x4 gauze and secure with rolled gauze and tape. Additional Information: Patient seen in [facility] for left lateral forearm wound. Rolled gauze and packing of Iodoform removed to reveal a raised area of ~75% moist red tissue and ~25% islands of yellow tissue measuring 4.9cm x 4.6cm with an opening in the center with a depth of 0.9cm. Wound was cleansed with NS and gauze with minimal to moderate sanguinous/yellow purulent drainage noted coming from opening in center of wound. Erythema and induration is noted circumferentially to periwound and noted extending distally from wound ~6cm. Wound was gently packed with Maxorb II and covered with another piece of Maxorb II for drainage and exudate. Primary dressing was then covered with 4x4 gauze and secured with rolled gauze and tape that may remain in place for 24 hours or change when saturated or dislodged. Recommend to keep arm elevated. Wound cultures were taken and resulted with MRSA. Leelee Vogt [facility]PITAL[facility]remy Feb 18, 2018 16:24
--- NOTE | 2018-02-18 18:35 | RADRPT ---
EXAM DATE: 02/18/2018 6:29 PM EDT AGE/SEX: 37 years / Male INDICATIONS: Open wound and inflammation to left forearm. CLINICAL DATA: This is the patient's initial encounter. Patient reports that signs and symptoms have been present for 1 week and indicates a pain score of 4/10. MEDICAL/SURGICAL HISTORY: None. None. COMPARISON: No prior [place] exams available for comparison. FINDINGS: 2 views of the left forearm demonstrate no fracture or dislocation. Mineralization is normal. There i s focal soft tissue swelling on the posterior mid forearm. No radiopaque foreign body is identified. CONCLUSION: Focal soft tissue swelling in the posterior mid forearm. However, no radiopaque foreign body is seen. There is no fracture identified. Electronically signed by: Salty Kingsley MD 02/18/2018 6:34 PM EDT
--- NOTE | 2018-02-18 20:02 | MB ---
cc: Virginie Silver MD, Sarah E MD DATE: 02/18/2018 REASON FOR CONSULTATION: Abscess and swelling left forearm. HISTORY OF PRESENT ILLNESS: Gael Machado is a 37-year-old male who states that on Wednesday he noted a pimple over the dorsal aspect of his left forearm. He went to his primary care physician who ordered clindamycin. He reports minimal improvement and presented to the emergency room yesterday on 02/17/2018. He was started on IV antibiotics with some improvement. He underwent incision and drainage in the emergency room with purulent drainage which is positive for MRSA. The patient has had prior surgery by my partner, Dr. Tineo, on the left index finger for also an abscess with a skin graft. He has also had prior MRSA abscesses on his abdomen. He states he is otherwise healthy. 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 He does workout daily and does shave. He denies any recent drug use. He does have a past medical history significant for drug use. He denies any paresthesias over the left hand and forearm. He reports mild pain over the left forearm at the area of the I and D site. ALLERGIES: ASPIRIN. 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 Smoked for 14 years, quit 5 years ago. Denies any current drug use. PAST MEDICAL HISTORY: Significant for drug use. PHYSICAL EXAMINATION: VITAL SIGNS: Stable Exam of the left arm shows a dressing in place. Dressing removed. Packing in place with purulent drainage. Approximately 2 x 2 cm area of ulceration on the dorsal ulnar aspect of the left forearm. Sensation intact in the median, ulnar and radial distribution. 2+ radial pulse. No pain with extension or flexion of the fingers. LABORATORY DATA: White count 12.5, ESR, CRP pending. IMAGING STUDIES: X-ray pending at this time. ASSESSMENT: A 37-year-old [id number] male admitted after several days of swelling and abscess over the dorsal ulnar aspect of the left forearm. He underwent incision and drainage in the emergency room and is admitted on IV antibiotics. PLAN: At this time, I recommended x-rays and an MRI of the forearm. We will look at the MRI to decide whether surgical intervention versus continued care by wound care. The patient will remain on IV antibiotics. He is in agreement with this plan. MD JUSTICE Vallejo , 06:55 PM , 08:00 PM [facility]
[2018-02-18] MEDS ORDERED: GADODIAMIDE PF 287 MG/ML 5 ML VIAL (for RAD MRI) IVCONTRAST ONE (21:48)
--- NOTE | 2018-02-18 22:12 | RADRPT ---
EXAM DATE: 02/18/2018 10:03 PM EDT AGE/SEX: 37 years / Male INDICATIONS: Abscess CLINICAL DATA: This is the patient's initial encounter. Patient reports that signs and symptoms have been present for 1 week and indicates a pain score of 4/10. MEDICAL/SURGICAL HISTORY: None. . Sx on left index finger. COMPARISON: [facility] [place], FORE[facility] LEFT (2VWS), 02/18/2018. . TECHNIQUE: Multiplanar, multisequence MRI examination was performed without and with ml Omniscan (ga dodiamide) contrast as single exam dose. FINDINGS: There is subcutaneous edema throughout most of the forearm. Adjacent to the mid ulna is more focal morris bcutaneous edema with more focal area of increased T2 signal which demonstrates peripheral enhancemen t. The area measures approximately 2.1 x 0.9 cm and appears to extend to the skin surface. It does no t involve any of the deeper muscle compartments and the bone marrow signal within the radius and ulna is within normal limits. CONCLUSION: 1. There is severe subcutaneous edema particularly adjacent to the ulna in the mid forearm where the re is a subcutaneous nonenhancing fluid collection measuring up to 2.1 x 0.9 cm. This may represent a small abscess but does appear to connect with the skin surface. 2. This abnormality does not involve the deeper muscle compartments and there are no findings to ind icate osteomyelitis. Electronically signed by: Salty Kingsley MD 02/18/2018 10:11 PM EDT
[2018-02-19] VITALS: BP 136/68; PULSE 57; RESP 20; TEMP 97.4; O2SAT 98
[2018-02-19] MEDS ORDERED: PHARMACY ORDERED LAB ONE (04:45)
[2018-02-19] MEDS: HEPARIN SODIUM - SQ 10,000 UNITS/ML VIAL SQ SCH ×2 (05:14→14:45)
[2018-02-19] MEDS: KETOROLAC TROMETHAMINE 30 MG/ML (IVP) VIAL IV PUSH SCH ×4 (05:16→20:31)
[2018-02-19] MEDS: VANCOMYCIN INJ 1,250 MG in SODIUM CHLOR 0.9% 250 ML INJ 250 ML IV SCH (05:16)
[2018-02-19 05:46] LABS: AUTOMATED NEUTROPHIL # 4.5 TH/MM3 (1.8-7.7); BASOPHIL # 0.1 TH/MM3 (0-0.2); BASOPHIL % 0.7 % (0.0-2.0); EOSINOPHIL # 0.7 TH/MM3 (0-0.4); EOSINOPHIL % 7.5 % (0.0-4.0); HEMATOCRIT 41.8 % (39.0-51.0); HEMOGLOBIN 14.1 GM/DL (13.0-17.0); LYMPH % 30.8 % (9.0-44.0); LYMPHOCYTE # 2.7 TH/MM3 (1.0-4.8); MEAN CELL VOLUME 88.6 FL (80.0-100.0); MEAN CORPUSCULAR HEMOGLOBIN 29.8 PG (27.0-34.0); MEAN CORPUSCULAR HGB CONC 33.7 % (32.0-36.0); MONO % 9.8 % (0.0-8.0); MONOCYTE # 0.9 TH/MM3 (0-0.9); NEUT % 51.2 % (16.0-70.0); PLATELET COUNT 458 TH/MM3 (150-450); RED BLOOD COUNT 4.71 MIL/MM3 (4.50-5.90); RED CELL DISTRIBUTION WIDTH 15.8 % (11.6-17.2); WHITE BLOOD COUNT 8.7 TH/MM3 (4.0-11.0)
[2018-02-19 06:07] LABS: CALCIUM 8.6 MG/DL (8.5-10.1); CREATININE 1.09 MG/DL (0.60-1.30)
[2018-02-19 08:00] VITALS: BP 142/74; PULSE 82; RESP 19; TEMP 98; O2SAT 96
[2018-02-19] MEDS: PANTOPRAZOLE SOD 40 MG DELAYED RELEASE TAB PO SCH (08:29)
[2018-02-19] MEDS: SODIUM CHLORIDE 0.9% FLUSH 10 ML FLUSH IV FLUSH SCH ×2 (08:30→20:31)
--- NOTE | 2018-02-19 11:15 | PD.PN.STU ---
Subjective Remarks Patient found sitting up in bed comfortably. No problems overnight. He endorses improvement in pain with toradol. Denies fever, chills, chest pain, shortness of breath, nausea, vomiting, constipation or diarrhea. Objective Vitals Vital Signs Date Time Temp Pulse Resp B/P (MAP) Pulse Ox O2 Delivery O2 Flow Rate FiO2 02/19/18 08:00 98.0 82 19 142/74 (96) 96 02/19/18 00:00 97.4 57 20 136/68 (90) 98 02/18/18 20:00 97.4 69 20 131/65 (87) 97 02/18/18 15:55 97.8 73 18 150/70 (96) 96 02/18/18 11:58 126/80 (95) 02/18/18 11:26 98.8 86 18 199/88 (125) 96 I/O 02/18/18 02/18/18 02/18/18 02/19/18 02/19/18 02/19/18 07:00 15:00 23:00 07:00 15:00 23:00 Intake Total 480 ml 50 ml 312.5 ml 360 ml Output Total 750 ml Balance 480 ml -700 ml 312.5 ml 360 ml Intake Oral 480 ml 360 ml IV Total 50 ml 312.5 ml Output Urine Total 750 ml # Voids 2 2 2 # Bowel Movements 0 Result Diagram: 02/19/18 0525 02/19/18 0525 Objective Remarks GENERAL: This is a well-nourished, well-developed patient, in no apparent distress. Found sitting up in bed comfortably. SKIN: Left forearm wrapped in gauze and bandage and currently packed. HEAD: Atraumatic. Normocephalic. No temporal or scalp tenderness. CARDIOVASCULAR: Regular rate and rhythm without murmurs, gallops, or rubs. RESPIRATORY: Clear to auscultation. Breath sounds equal bilaterally. No wheezes , rales, or rhonchi. GASTROINTESTINAL: Abdomen soft, non-tender, nondistended. No hepato-splenomegaly , or palpable masses. No guarding. Two healing scars from prior I&D sites present in lower abdominal region. NEUROLOGICAL: Awake and alert. Oriented x 3. Normal speech. A/P Assessment and Plan 37-year-old male with history of MRSA infections who presented to ED with LUE abscess with surrounding cellulitis x 1 week. Patient failed outpatient therapy with clindamycin. Code Status Full Code Problem List: (1) Cellulitis of left forearm ICD Codes: L03.114 - Cellulitis of left upper limb Plan: Patient with a one-week history of left forearm abscess with surrounding cellulitis. Failed outpatient therapy with clindamycin. Hx of MRSA infection in 2010. I&D performed in the ED 02/17. Patient received 1 dose of Zosyn and Vanc in the ED. Continue IV Vancomycin 2500mg IV every 12 hours per pharmacy dosing recommendation. Wound culture positive for MRSA. Blood cultures showed no growth x1 day Wound care on board for dressing changes and home management plan. MRI of left forearm showed severe subcutaneous edema adjacent to the ulna in mid forearm where there is a subcutaneous nonenhancing fluid collection measuring up to 2.1 x 0.9cm. No evidence of deep muscle involvement or osteomyelitis. No indication for surgical intervention at this time per Orthopedic Surgery. Possible discharge on Bactrim 160mg PO daily. Pain control: Currently well-controlled. Continue Toradol 30mg IM every 6 hours for pain. (2) Hx MRSA infection ICD Codes: Z86.14 - Personal history of Methicillin resistant Staphylococcus aureus infection Plan: History of MRSA infection. Contact precautions. Will plan to discharge with MRSA eradication plan due to history of recurrent MRSA infections. Consider topical options such as Bactroban and Hibiclens. (3) GERD (gastroesophageal reflux disease) ICD Codes: K21.9 - Gastroesophageal reflux disease Status: Acute Plan: Continue Protonix 40 mg daily (4) Nutrition, metabolism, and development symptoms ICD Codes: R63.8 - Other symptoms and signs concerning food and fluid intake Plan: Diet: Regular basic Fluids: P.o. hydration Vitals every 4, monitor I's and O's DVT ppx: SCDs, Heparin 5000 units q12h Note completed by Agnes Yeboah, MS4 Discharge Planning Possible discharge on Bactrim 160mg PO daily. Agnes Yeboah Feb 19, 2018 11:14 Woody Buck MD Feb 19, 2018 18:01
--- NOTE | 2018-02-19 11:48 | PD.ORT.PN ---
Subjective Subjective Remarks Patient reports pain improved since yesterday. Continues to deny paresthesias. Objective Vitals Vital Signs Date Time Temp Pulse Resp B/P (MAP) Pulse Ox O2 Delivery O2 Flow Rate FiO2 02/19/18 08:00 98.0 82 19 142/74 (96) 96 02/19/18 00:00 97.4 57 20 136/68 (90) 98 02/18/18 20:00 97.4 69 20 131/65 (87) 97 02/18/18 15:55 97.8 73 18 150/70 (96) 96 02/18/18 11:58 126/80 (95) I/O 02/18/18 02/18/18 02/18/18 02/19/18 02/19/18 02/19/18 07:00 15:00 23:00 07:00 15:00 23:00 Intake Total 480 ml 50 ml 312.5 ml 360 ml Output Total 750 ml Balance 480 ml -700 ml 312.5 ml 360 ml Intake Oral 480 ml 360 ml IV Total 50 ml 312.5 ml Output Urine Total 750 ml # Voids 2 2 2 # Bowel Movements 0 Result Diagram: 02/19/18 0525 02/19/18 0525 Objective Remarks Dressing in place, compartments soft and compressible, sitlt m/u/r, 2+ radial pulse Assessment & Plan Assessment and Plan 37yM s/p I&D in ER by ER physician left forearm abscess + MRSA -MRI shows superficial collection draining to skin with packing in place -No indication for surgical intervention at this time -Follow ID recs -Okay to discharge per hand surgery, followup with pcp, wound clinic, or myself in office Virginie Silver MD Feb 19, 2018 11:48
[2018-02-19 12:00] VITALS: BP 164/71; PULSE 68; RESP 19; TEMP 97.8; O2SAT 98
--- NOTE | 2018-02-19 13:11 | HHI.FPPN ---
Subjective Remarks Patient is doing okay this morning, he states that the pain and swelling in his arm has reduced significantly. He is able to move his arm and his fingers without issues. He had lots of questions about the plan going forward in terms of if he was going to have surgery today and antibiotic management. He stated that he was hungry and would like to eat but he was currently n.p.o. in case he was to have surgery today. (Daniela Lay MD R2) Objective Vitals Vital Signs Date Time Temp Pulse Resp B/P (MAP) Pulse Ox O2 Delivery O2 Flow Rate FiO2 02/19/18 08:00 98.0 82 19 142/74 (96) 96 02/19/18 00:00 97.4 57 20 136/68 (90) 98 02/18/18 20:00 97.4 69 20 131/65 (87) 97 02/18/18 15:55 97.8 73 18 150/70 (96) 96 I/O 02/18/18 02/18/18 02/18/18 02/19/18 02/19/18 02/19/18 07:00 15:00 23:00 07:00 15:00 23:00 Intake Total 480 ml 50 ml 312.5 ml 360 ml Output Total 750 ml Balance 480 ml -700 ml 312.5 ml 360 ml Intake Oral 480 ml 360 ml IV Total 50 ml 312.5 ml Output Urine Total 750 ml # Voids 2 2 2 # Bowel Movements 0 (Daniela Lay MD R2) Result Diagram: 02/19/18 0525 02/19/18 0525 Imaging Last Impressions Upper Extremity MRI 02/18/18 0000 Signed Impressions: CONCLUSION: 1. There is severe subcutaneous edema particularly adjacent to the ulna in the mid forearm where there is a subcutaneous nonenhancing fluid collection measur ing up to 2.1 x 0.9 cm. This may represent a small abscess but does appear to c onnect with the skin surface. 2. This abnormality does not involve the deeper muscle compartments and there are no findings to indicate osteomyelitis. Radius/Ulna X-Ray 02/18/18 0000 Signed Impressions: CONCLUSION: Focal soft tissue swelling in the posterior mid forearm. However, no radiopaque foreign body is seen. There is no fracture identified. Objective Remarks GENERAL: Athletic appearing, muscular, well-developed male in no obvious distress SKIN: Left forearm dressing in place. Compartments soft, not as TTP as previous day's exam. No obvious areas of fluctuance or induration. CARDIOVASCULAR: Regular rate and rhythm without murmurs, gallops, or rubs. RESPIRATORY: Clear to auscultation. Breath sounds equal bilaterally. No wheezes , rales, or rhonchi. MUSCULOSKELETAL: See skin exam above. NEUROLOGICAL: Awake and alert. Oriented x 3. (Daniela Lay MD R2) A/P Assessment and Plan 37-year-old male with history of MRSA infections presented to the ED with abscess of left forearm. Patient failed outpatient therapy with clindamycin. Discharge Planning Per ID recommendations, patient will benefit from 1-2 more days of IV antibiotics. Clear for discharge per hand surgery but to follow ID recommendations (Daniela Lay MD R2) Attending Attestation Pt. examined independently and case discussed with resident physicians. I have read the above note and agree with the assessment and plan as discussed with me. I was involved in all medical decision making for this patient. Woody Buck MD (Woody Buck MD) Problem List: (1) Cellulitis of left forearm ICD Codes: L03.114 - Cellulitis of left upper limb Plan: Status post incision and drainage in the emergency department packing material placed -Failed outpatient management with oral clindamycin 300 mg p.o. 3 times daily -Wound culture growing MRSA resistant to clindamycin, sensitive to Bactrim and linezolid * MRSA precautions in place -Blood cultures 2 with no growth 1 day Continue IV antibiotics: * Vancomycin 1500 mg IV every 12 hours to cover for staph/strep as patient has a history of MRSA -Wound management per wound care nurse Pain control: Tylenol for fever and pain Toradol 30 mg IM every 6 hours as needed pain Avoid narcotic medications per patient preference due to history of illicit substance use (2) GERD (gastroesophageal reflux disease) ICD Codes: K21.9 - Gastroesophageal reflux disease Status: Acute Plan: Protonix 40 mg daily (3) Nutrition, metabolism, and development symptoms ICD Codes: R63.8 - Other symptoms and signs concerning food and fluid intake Plan: Diet: Regular basic Fluids: P.o. hydration Vitals every 4, monitor I's and O's DVT ppx: SCDs, Heparin 5000 units q12h (Daniela Lay MD R2) Daniela Lay MD R2 Feb 19, 2018 13:11 Woody Buck MD Feb 19, 2018 18:09
--- NOTE | 2018-02-19 13:44 | PD.ID.CON ---
History of Present Illness Service ID Consult Requested By Reason for Consult Evaluation and management of left hand infection. Primary Care Physician José Miguel Mccracken MD Diagnoses: History of Present Illness Mr. Machado is a 37-year-old male with past medical history significant for recurrent MRSA skin infections. With this background patient presents to the emergency department with left forearm abscess and cellulitis having failed outpatient clindamycin. Approximately 1 week prior to admission patient noticed a pustule on his left forearm with a small amount of purulent material. Later turned into a large boil and began to increase in swelling at which point he called his PCPs PCP prescribed him clindamycin. Despite 5 days of clindamycin the patient's hand swelling erythema and pain in the left forearm been trying to progress. 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 Due to persistence of symptoms patient presents to the emergency department for further evaluation. Patient was started on Zosyn and vancomycin and hand surgery consult was placed. He underwent an MRI of the left hand which shows no osteomyelitis or deep tissue infection. At the time of my evaluation patient on a regular floor for admission. Sitting up in bed denies any complaints. Denies any fever or chills. Denies any trauma or denies any intravenous drug abuse. Infectious diseases consulted for evaluation and management of left hand abscess and cellulitis. Review of Systems Constitutional: DENIES: Diaphoretic episodes, Fatigue, Fever, Weight gain, Weight loss, Chills, Dizziness, Change in appetite, Night Sweats Endocrine: DENIES: Heat/cold intolerance, Polydipsia, Polyuria, Polyphagia Eyes: DENIES: Blurred vision, Diplopia, Eye inflammation, Eye pain, Vision loss , Photosensitivity, Double Vision Ears, nose, mouth, throat: DENIES: Tinnitus, Hearing loss, Vertigo, Nasal discharge, Oral lesions, Throat pain, Hoarseness, Ear Pain, Running Nose, Epistaxis, Sinus Pain, Toothache, Odynophagia Respiratory: DENIES: Apneas, Cough, Snoring, Wheezing, Hemoptysis, Sputum production, Shortness of breath Cardiovascular: DENIES: Chest pain, Palpitations, Syncope, Dyspnea on Exertion , PND, Lower Extremity Edema, Orthopnea, Claudication Gastrointestinal: DENIES: Abdominal pain, Black stools, Bloody stools, Constipation, Diarrhea, Nausea, Vomiting, Difficulty Swallowing, Anorexia Genitourinary: DENIES: Sexual dysfunction, Urinary frequency, Urinary incontinence, Urgency, Hematuria, Dysuria, Nocturia, Penile Discharge, Testicular Pain, Testicular Swelling Musculoskeletal: DENIES: Joint pain, Muscle aches, Stiffness, Joint Swelling, Back pain, Neck pain Integumentary: COMPLAINS OF: Abnormal pigmentation, DENIES: Nail changes, Pruritus, Rash Hematologic/lymphatic: DENIES: Bruising, Lymphadenopathy Immunologic/allergic: DENIES: Eczema, Urticaria Neurologic: DENIES: Abnormal gait, Headache, Localized weakness, Paresthesias, Seizures, Speech Problems, Tremor, Poor Balance Psychiatric: DENIES: Anxiety, Confusion, Mood changes, Depression, Hallucinations, Agitation, Suicidal Ideation, Homicidal Ideation, Delusions Except as stated in HPI: all other systems reviewed are Neg Past Family Social History Allergies: Coded Allergies: aspirin (Verified Allergy, Severe, hives, 02/17/18) Past Medical History GERD Hx of MRSA Past Surgical History 4 MRSA- 4 surgery on finger left- index Reported Medications Reported Meds & Active Scripts Active Protonix (Pantoprazole Sodium) 40 Mg Tab 40 Mg PO DAILY One bid for reflux Active Ordered Medications Current Medications Medications (Trade) Dose Ordered Sig/Pepito Route Start Time Stop Time Status Last Admin (Protonix) 40 mg DAILY PO 02/18/18 09:00 02/19/18 08:29 (NS Flush) 2 ml UNSCH PRN IV FLUSH 02/17/18 14:15 02/18/18 16:39 (NS Flush) 2 ml BID IV FLUSH 02/17/18 14:15 02/19/18 08:30 (Zofran Inj) 4 mg Q6H PRN IVP 02/17/18 14:15 (Heparin Inj) 5,000 units Q12H SQ 02/17/18 15:00 02/19/18 05:14 (Narcan Inj) 0.4 mg UNSCH PRN IV PUSH 02/17/18 14:15 (Tylenol) 650 mg Q6H PRN PO 02/17/18 15:00 02/18/18 11:38 (Benadryl) 50 mg Q6H PRN PO 02/17/18 18:30 02/17/18 18:48 Pharmacy Profile Note 0 ml @ 0 mls/hr UNSCH OTHER 5/31/18 15:00 (Toradol Inj) 30 mg Q6H IV PUSH 02/18/18 15:00 02/23/18 09:01 02/19/18 08:29 Vancomycin HCl 2500 mg/Sodium Chloride 525 ml @ 250 mls/hr Q12H IV 02/19/18 17:00 ([facility] Ordered Lab Info) SPECIFIC LAB TO BE DRAWN:VANCO TROUGH DATE TO BE DR... 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 SKIN: No rashes, ecchymoses or lesions. Cool and dry. HEAD: Atraumatic. Normocephalic. No temporal or scalp tenderness. EYES: Pupils equal round and reactive. Extraocular motions intact. No scleral icterus. No injection or drainage. ENT: Nose without bleeding, purulent drainage or septal hematoma. Throat without erythema, tonsillar hypertrophy or exudate. Uvula midline. Airway patent. NECK: Trachea midline. Supple, nontender, no meningeal signs. CARDIOVASCULAR: Heart sounds audible. RESPIRATORY: Clear to auscultation. Breath sounds equal bilaterally. No wheezes , rales, or rhonchi. GASTROINTESTINAL: Abdomen soft, non-tender, nondistended. MUSCULOSKELETAL: Left hand with significant induration swelling noted. Erythema appears to have decreased compared to admission pictures. There is a golf ball size swelling with purulent looking discharge. NEUROLOGICAL: Awake and alert. Nonfocal exam. Normal speech. Psych cooperative IV line sites with no evidence of infection. Laboratory Laboratory Tests Test 02/18/18 17:03 02/19/18 05:10 02/19/18 05:25 Erythrocyte Sedimentation Rate 47 Vancomycin Level Trough 3.3 White Blood Count 8.7 Red Blood Count 4.71 Hemoglobin 14.1 Hematocrit 41.8 Mean Corpuscular Volume 88.6 Mean Corpuscular Hemoglobin 29.8 Mean Corpuscular Hemoglobin Concent 33.7 Red Cell Distribution Width 15.8 Platelet Count 458 Mean Platelet Volume 7.0 Neutrophils (%) (Auto) 51.2 Lymphocytes (%) (Auto) 30.8 Monocytes (%) (Auto) 9.8 Eosinophils (%) (Auto) 7.5 Basophils (%) (Auto) 0.7 Neutrophils # (Auto) 4.5 Lymphocytes # (Auto) 2.7 Monocytes # (Auto) 0.9 Eosinophils # (Auto) 0.7 Basophils # (Auto) 0.1 CBC Comment DIFF FINAL Differential Comment Blood Urea Nitrogen 22 Creatinine 1.09 Random Glucose 98 Calcium Level 8.6 Sodium Level 142 Potassium Level 4.7 Chloride Level 109 Carbon Dioxide Level 24.0 Anion Gap 9 Estimat Glomerular Filtration Rate 77 Date/Time Source Procedure Growth Status 02/17/18 10:50 Blood Peripheral Aerobic Blood Culture - Preliminary NO GROWTH IN 2 DAYS Resulted 02/17/18 10:50 Blood Peripheral Anaerobic Blood Culture - Preliminary NO GROWTH IN 2 DAYS Resulted 02/17/18 11:10 Wound Arm Gram Stain - Final Complete 02/17/18 11:10 Wound Culture - Final S. Aureus Mrsa Complete Result Diagram: 02/19/18 0525 02/19/18 0525 Imaging Last Impressions Upper Extremity MRI 02/18/18 0000 Signed Impressions: CONCLUSION: 1. There is severe subcutaneous edema particularly adjacent to the ulna in the mid forearm where there is a subcutaneous nonenhancing fluid collection measur ing up to 2.1 x 0.9 cm. This may represent a small abscess but does appear to c onnect with the skin surface. 2. This abnormality does not involve the deeper muscle compartments and there are no findings to indicate osteomyelitis. Radius/Ulna X-Ray 02/18/18 0000 Signed Impressions: CONCLUSION: Focal soft tissue swelling in the posterior mid forearm. However, no radiopaque foreign body is seen. There is no fracture identified. Assessment and Plan Assessment and Plan Left hand abscess and cellulitis Prior history of recurrent MRSA infections Recommendations Continue vancomycin IV target trough 10-15 Follow cultures Follow clinically Discussed with Dr. Silver agrees patient needs IV antibiotics for probably another day or 2 Discussed with Haley Garcia MD Feb 19, 2018 13:44
[2018-02-19 16:00] VITALS: BP 147/63; PULSE 71; RESP 19; TEMP 98.3; O2SAT 97
[2018-02-19] MEDS: VANCOMYCIN INJ 2,500 MG in SODIUM CHLORID 0.9% 500 ML INJ 500 ML IV SCH (17:14)
[2018-02-19 20:00] VITALS: BP 127/61; PULSE 69; RESP 17; TEMP 98.2; O2SAT 98
[2018-02-20] VITALS: BP 139/66; PULSE 63; RESP 17; TEMP 97.7; O2SAT 100
[2018-02-20] MEDS: KETOROLAC TROMETHAMINE 30 MG/ML (IVP) VIAL IV PUSH SCH ×2 (02:59→08:57)
[2018-02-20] MEDS: HEPARIN SODIUM - SQ 10,000 UNITS/ML VIAL SQ SCH (03:00)
[2018-02-20] MEDS: SODIUM CHLORIDE 0.9% FLUSH 10 ML FLUSH IV FLUSH PRN (03:00)
[2018-02-20] MEDS: VANCOMYCIN INJ 2,500 MG in SODIUM CHLORID 0.9% 500 ML INJ 500 ML IV SCH (04:09)
[2018-02-20 06:14] LABS: HEMATOCRIT 41.1 % (39.0-51.0); HEMOGLOBIN 13.5 GM/DL (13.0-17.0); MEAN CELL VOLUME 88.6 FL (80.0-100.0); MEAN CORPUSCULAR HEMOGLOBIN 29.1 PG (27.0-34.0); MEAN CORPUSCULAR HGB CONC 32.9 % (32.0-36.0); MEAN PLATELET VOLUME 7.6 FL (7.0-11.0); PLATELET COUNT 519 TH/MM3 (150-450); RED BLOOD COUNT 4.64 MIL/MM3 (4.50-5.90); RED CELL DISTRIBUTION WIDTH 15.7 % (11.6-17.2); WHITE BLOOD COUNT 8.6 TH/MM3 (4.0-11.0)
[2018-02-20 06:33] LABS: BICARBONATE 24.9 MEQ/L (21.0-32.0); CALCIUM 8.7 MG/DL (8.5-10.1); CREATININE 0.98 MG/DL (0.60-1.30)
[2018-02-20 08:00] VITALS: BP 146/69; PULSE 78; RESP 18; TEMP 97.9; O2SAT 99
[2018-02-20] MEDS: PANTOPRAZOLE SOD 40 MG DELAYED RELEASE TAB PO SCH (08:56)
[2018-02-20] MEDS: SODIUM CHLORIDE 0.9% FLUSH 10 ML FLUSH IV FLUSH SCH (08:57)
--- NOTE | 2018-02-20 09:55 | HHI.FPPN ---
Subjective Remarks No acute events overnight. Patient sitting up in bed. Father at bedside. He has no complaints this morning. He is anxious to go home. He denies fevers, chest pain, shortness of breath, nausea vomiting, abdominal pain. (Anjelica Davis MD R1) Objective Vitals Vital Signs Date Time Temp Pulse Resp B/P (MAP) Pulse Ox O2 Delivery O2 Flow Rate FiO2 02/20/18 08:00 97.9 78 18 146/69 (94) 99 02/20/18 00:00 97.7 63 17 139/66 (90) 100 02/19/18 20:00 98.2 69 17 127/61 (83) 98 02/19/18 16:00 98.3 71 19 147/63 (91) 97 02/19/18 12:00 97.8 68 19 164/71 (102) 98 I/O 02/19/18 02/19/18 02/19/18 02/20/18 02/20/18 02/20/18 07:00 15:00 23:00 07:00 15:00 23:00 Intake Total 360 ml 960 ml 240 ml Balance 360 ml 960 ml 240 ml Intake Oral 360 ml 960 ml 240 ml # Voids 2 5 2 # Bowel Movements 0 (Anjelica Davis MD R1) Result Diagram: 02/20/18 0350 02/20/18 0350 Objective Remarks GENERAL: Athletic appearing, muscular, well-developed male in no obvious distress SKIN: Left forearm dressing in place. Compartments soft. No obvious areas of fluctuance or induration. CARDIOVASCULAR: Regular rate and rhythm without murmurs, gallops, or rubs. RESPIRATORY: Clear to auscultation. Breath sounds equal bilaterally. No wheezes , rales, or rhonchi. MUSCULOSKELETAL: See skin exam above. NEUROLOGICAL: Awake and alert. Oriented x 3. (Anjelica Davis MD R1) A/P Assessment and Plan 37-year-old male with history of MRSA infections presented to the ED with abscess of left forearm. Patient failed outpatient therapy with clindamycin. Discharge Planning Per ID recommendations, patient will benefit from 1-2 more days of IV antibiotics. Clear for discharge per hand surgery but to follow ID recommendations (Anjelica Davis MD R1) Attending Attestation Patient examined independently and case discussed with resident physician I have read the above note and agree with the assessment/plan as discussed with me. I was involved in all medical decision making for this patient Woody Buck MD (Woody Buck MD) Problem List: (1) Cellulitis of left forearm ICD Codes: L03.114 - Cellulitis of left upper limb Plan: Status post incision and drainage in the emergency department packing material placed -Failed outpatient management with oral clindamycin 300 mg p.o. 3 times daily -Wound culture growing MRSA resistant to clindamycin, sensitive to Bactrim and linezolid * MRSA precautions in place -Blood cultures NGTD Continue IV antibiotics: * Vancomycin 1500 mg IV every 12 hours to cover for staph/strep as patient has a history of MRSA, will discuss with ID about transitioning patient to p.o. Bactrim -Wound management per wound care nurse -Patient may need follow-up in wound care clinic Pain control: Tylenol for fever and pain Toradol 30 mg IM every 6 hours as needed pain Avoid narcotic medications per patient preference due to history of illicit substance use (2) GERD (gastroesophageal reflux disease) ICD Codes: K21.9 - Gastroesophageal reflux disease Status: Acute Plan: Protonix 40 mg daily (3) Nutrition, metabolism, and development symptoms ICD Codes: R63.8 - Other symptoms and signs concerning food and fluid intake Plan: Diet: Regular basic Fluids: P.o. hydration Vitals every 4, monitor I's and O's DVT ppx: SCDs, Heparin 5000 units q12h (Anjelica Davis MD R1) Anjelica Davis MD R1 Feb 20, 2018 09:55 Woody Buck MD Feb 20, 2018 11:45
[2018-02-20] MEDS ORDERED: BACT800T5 PO (11:28)
--- NOTE | 2018-02-20 11:29 | HHI.DCPOC ---
Discharge Care Plan Diagnosis: (1) Cellulitis of left forearm (2) History of MRSA infection Goals to Promote Your Health * To prevent worsening of your condition and complications * To maintain your health at the optimal level Directions to Meet Your Goals Take your medications as prescribed Follow your dietary instruction Follow activity as directed Keep your appointments as scheduled Take your immunizations and boosters as scheduled If your symptoms worsen call your PCP, if no PCP go to Urgent Care Center or Emergency Room Smoking is Dangerous to Your Health. Avoid second hand smoke Call the 24-hour hour crisis hotline for domestic abuse at Anjelica Davis MD R1 Feb 20, 2018 11:29
[2018-02-20] MEDS ORDERED: PHARMACY ORDERED LAB ONE (16:45)
== END 2018-02-20 12:19 | disposition home or self-care (01) | DRG 603 ==
LOC: NEPC 09:43 → NEDA 13:44 → NEPFCDU 16:35 → OBSVTOIN 02-18 09:40 → N07A 02-18 18:29
PROVIDERS: ADMIT Family Medicine; ATTEND Family Medicine
PROC: 0H9EXZZ Drainage of Left Lower Arm Skin, External Approach (ICD-10-PCS; principal; 2018-02-17)
DX: L02.414 Cutaneous abscess of left upper limb (principal); L03.114 Cellulitis of left upper limb; B95.62 Methicillin resistant Staphylococcus aureus infection as the cause of diseases classified elsewhere; G89.29 Other chronic pain; M54.5 Low back pain; K21.9 Gastro-esophageal reflux disease without esophagitis; L27.0 Generalized skin eruption due to drugs and medicaments taken internally; T36.8X5A Adverse effect of other systemic antibiotics, initial encounter; Y92.239 Unspecified place in hospital as the place of occurrence of the external cause; Z86.14 Personal history of Methicillin resistant Staphylococcus aureus infection; Z87.891 Personal history of nicotine dependence; Z88.6 Allergy status to analgesic agent
CPT/HCPCS: 73090; 73220; 80048; 80202; 80307; 83605; 85025; 85027; 85652; 86403; 87040; 87070; 87147; 87186; 87205; A9579; J0131; J1644; J1885; J2543; J3370; J7040; J7050